=== PATIENT | female | born 1970 | race American Indian/Alaskan Native ===

== ENCOUNTER 2018-03-21 05:39 | Day surgery (SDC) | payer OTHER ==
[2018-03-21] MEDS ORDERED: NACL 0.9% 1000 ML 1,000 ML IV SCH (06:00)
[2018-03-21] MEDS ORDERED: ANCEF/STERILE WATER 2 GM/20 ML 2 GM/20 ML SYRINGE IV NR (06:00)
[2018-03-21 06:37] LABS: Basophils # (Auto) 0.1 K/mm3 (0.0-0.1); Basophils % (Auto) 1.6 % (0.0-1.8); Eosinophils # (Auto) 0.2 K/mm3 (0.0-0.4); Eosinophils % (Auto) 2.5 % (0.0-4.3); Hematocrit 34.8 % (30.3-42.9); Hemoglobin 11.1 gm/dl (10.1-14.3); Lymphocytes # (Auto) 2.4 K/mm3 (1.2-5.4); Lymphocytes % (Auto) 35.2 % (13.4-35.0); Mean Corpuscular HGB Conc 32 % (30-34); Mean Corpuscular Hemoglobin 27 pg (28-32); Mean Corpuscular Volume 84 fl (79-97); Monocytes # (Auto) 0.4 K/mm3 (0.0-0.8); Monocytes % (Auto) 6.2 % (0.0-7.3); Platelet Count 303 K/mm3 (140-440); Red Blood Count 4.16 M/mm3 (3.65-5.03); Red Cell Distribution Width 16.3 % (13.2-15.2)
[2018-03-21 06:49] LABS: INR 0.91 (0.87-1.13)
[2018-03-21 06:50] LABS: Partial Thromboplastin Time 28.6 Sec. (24.2-36.6)
[2018-03-21 06:55] LABS: BUN/Creatinine Ratio 16; Blood Urea Nitrogen 11 mg/dL (7-17); Calcium 8.8 mg/dL (8.4-10.2); Hemolysis Index 93
[2018-03-21] MEDS ORDERED: PEPCID IV ONE (07:12)
[2018-03-21] MEDS ORDERED: HEPARIN/NS 5000 UNIT/500ML(CATH LAB) 1,000 ML IR ONE (07:15)
[2018-03-21] MEDS ORDERED: XYLOCAINE 2% INFILTRATI ONE (07:15)
[2018-03-21] MEDS: BENADRYL ONE ×2 (07:18→07:57)
[2018-03-21] MEDS ORDERED: ANCEF/STERILE WATER 2 GM/20 ML 2 GM/20 ML SYRINGE IV ONE (07:30)
[2018-03-21] MEDS ORDERED: NITROGLYCERIN SYRINGE 3 ML ONE (07:53)
[2018-03-21] MEDS: SUBLIMAZE ONE ×3 (07:53→08:35)
[2018-03-21] MEDS: VERSED IV ONE ×2 (07:53→08:16)
[2018-03-21] MEDS ORDERED: HEPARIN 10,000 UNITS/10 ML ONE (07:53)
[2018-03-21] MEDS ORDERED: CALAN ONE (07:53)
[2018-03-21] MEDS ORDERED: TORADOL ONE (08:36)
--- NOTE | 2018-03-21 09:03 | Operative Report ---
Operative Report Operative Report: Operative Report: Procedure: 1. Ultrasound-guided access of the left radial artery 2. Left internal iliac arteriography 3. Left uterine arteriography 4. Embolization of the left uterine artery with 500-700 embospheres. Date of Procedure: 03/21/2018 History/Indication: 47-year-old female with menorrhagia refractory to medical treatment Physician: Mellisa Armando MD Technique/Procedural Details: The patient was placed in the supine position and prepped and draped in the usual sterile fashion. A timeout was performed. Local anesthetic was administered. Under continuous ultrasound guidance, the left radial artery was accessed with a 21-gauge needle. This was exchanged over a wire for a slender 5 Malian glide sheath. A combination of a Glidewire and 5 Malian vertebral catheter was used to select the left internal iliac artery. Arteriography was performed. A combination of a 150cm Glidecatheter and 260cm Glidewire was used to select the left uterine artery, and arteriography was again performed. Thereafter, two vials of 500-700 embospheres was used to embolize the left uterine artery. Final imaging was acquired. All wires and catheters were removed, and hemostasis was achieved with a transradial band. Discussion: Only the left uterine artery was selected, due to radiation safety concerns. Due to a combination of fibroid density and body composition, radiation levels were somewhat high even after only 1-2 minutes of fluoroscopy time (600-800 mGy) . However, the patient will most likely experience significant symptomatic relief, as the left uterine artery is significantly dominant (this is in comparison to prior imaging from the outpatient setting last week). The left uterine artery is very large and provides a large amount of cross vascularization to the right side of the uterus. Two vials of 500-700 embospheres were used to embolize the left uterine artery to the point of near arterial stasis. At no point during the procedure was there significant reflux from the catheter tip. Specimen: None EBL: <5 cc
[2018-03-21] MEDS ORDERED: DILAUDID IV ONE (10:14)
[2018-03-21] MEDS ORDERED: DILAUDID ONE (10:17)
[2018-03-21 11:58] VITALS: BP 133/86
== END 2018-03-21 11:20 | disposition home or self-care (01) ==
LOC: CATHLABREC 05:39
PROVIDERS: ATTEND Radiology Diagnostic Radiology
DX: D25.9 Leiomyoma of uterus, unspecified (principal); I10 Essential (primary) hypertension; Z90.49 Acquired absence of other specified parts of digestive tract; Z98.890 Other specified postprocedural states; Z79.01 Long term (current) use of anticoagulants
CPT/HCPCS: 36415; 37243; 80048; 85025; 85610; 85730; 96374; 99156; 99157; C1769; J0690; J1170; J1200; J1644; J1885; J2250; J2930; J3010; J7030; Q9967